=== PATIENT | female | born 1995 | race Caucasian/White ===

== ENCOUNTER 2016-08-04 07:13 | Inpatient (IN) | payer MEDICAID ==
[~2016-08-04] VITALS: Ht 167.6 cm; Wt 89.8 kg
[2016-08-04] VITALS (7 sets, daily range): BP systolic 111–124; RESP 18–20; TEMP 98.6; Ht 167.6 cm; Wt 89.8 kg
[2016-08-04] MEDS ORDERED: ACETAMINOPHEN 325 MG TAB PO PRN (07:20)
[2016-08-04] MEDS ORDERED: FAMOTIDINE 20 MG TAB PO PRN (07:20)
[2016-08-04] MEDS ORDERED: METOCLOPRAMIDE 10 MG/2 ML VIAL IV PUSH PRN (07:20)
[2016-08-04] MEDS ORDERED: MORPHINE 5 MG/1 ML VIAL IV PRN (07:20)
[2016-08-04] MEDS ORDERED: LIDOCAINE 1% BUFFERED 1 ML SYR INTRADERM PRN (07:20)
[2016-08-04] MEDS ORDERED: CEFAZOLIN (LD/OB) 100 ML IV PRN (07:20)
[2016-08-04] MEDS ORDERED: TERBUTALINE 1 MG/ML VIAL SUBQ PRN (07:20)
[2016-08-04] MEDS ORDERED: FAMOTIDINE 20 MG INJ IV PRN (07:20)
[2016-08-04] MEDS ORDERED: PROMETHAZINE 25 MG/ML VIAL IV PRN (07:20)
[2016-08-04] MEDS ORDERED: ONDANSETRON 4 MG VIAL IV PRN (07:20)
[2016-08-04] MEDS ORDERED: OXYTOCIN 15 UNITS/250 ML NS 250 ML IV SCH ×3 (07:20→20:30)
[2016-08-04] MEDS ORDERED: ALU/MAG/SIM 30 ML UDC PO PRN (07:20)
[2016-08-04] MEDS ORDERED: LIDOCAINE 1% 30 ML PF INFILTRATE ONE (07:20)
[2016-08-04] MEDS: LACT RINGERS 1,000 ML IV SCH ×2 (07:37→09:42)
[2016-08-04] MEDS ORDERED: LIDOCAINE 2% 5 ML IV ONE (07:48)
[2016-08-04] MEDS ORDERED: ROPIV/FENT 0.2%-2MCG/ML 100 ML EPIDURAL ONE (09:22)
[2016-08-04] MEDS ORDERED: FENTANYL 100 MCG/2 ML AMP ONE (09:22)
[2016-08-04] MEDS ORDERED: LACT RINGERS 500 ML IV PRN (10:00)
[2016-08-04] MEDS ORDERED: SODIUM CHLORIDE 0.9% 500 ML IV PRN (10:00)
[2016-08-04] MEDS ORDERED: FENTANYL 100 MCG/2 ML AMP EPIDURAL ONE (10:00)
[2016-08-04] MEDS ORDERED: LACT RINGERS 500 ML IV ONE (10:00)
[2016-08-04] MEDS: ROPIV/FENT 0.2%-2MCG/ML 100 ML EPIDURAL SCH ×2 (10:29→16:04)
[2016-08-04] MEDS ORDERED: **ONLY ANESTEHSIA MAY ORDER OPIATES WHILE ON EPIDURAL XX SCH (20:00)
[2016-08-04] MEDS ORDERED: MISOPROSTOL 200 MCG TAB RECTAL ONE (20:30)
[2016-08-04] MEDS ORDERED: MAG HYDROX 30 ML UDC PO PRN (20:30)
[2016-08-04] MEDS ORDERED: ZOLPIDEM 5 MG TAB PO PRN (20:30)
[2016-08-04] MEDS ORDERED: TDaP 0.5 ML VIAL IM.VACC ONE (20:30)
[2016-08-04] MEDS ORDERED: SALINE FLUSH 10 ML FLUSH PRN (20:30)
[2016-08-04] MEDS ORDERED: MISOPROSTOL 200 MCG TAB PO ONE (20:30)
[2016-08-04] MEDS ORDERED: SODIUM CHLORIDE 0.9% FLUSH BAG 500 ML IV PRN (20:30)
[2016-08-04] MEDS ORDERED: MEASLES,MUMPS,RUBELLA VAC SUBQ.VACC ONE (20:30)
[2016-08-04] MEDS ORDERED: DERMOPLAST SPRAY TOPICAL PRN (20:30)
[2016-08-04] MEDS ORDERED: MISOPROSTOL 100 MCG TAB ONE (21:24)
[2016-08-04] MEDS: Ibuprofen 800 MG TAB PO SCH (22:33)
[2016-08-04] MEDS: ASTRINGENT MED PADS 40'S TOPICAL PRN (23:50)
[2016-08-05 02:27] VITALS: BP_SYST 117; RESP 18; TEMP 98.1
[2016-08-05 05:51] VITALS: BP_SYST 122; RESP 16; TEMP 97.5
[2016-08-05] MEDS ORDERED: SALINE FLUSH 10 ML FLUSH SCH (08:00)
[2016-08-05] MEDS: Ibuprofen 800 MG TAB PO SCH ×3 (09:02→23:54)
[2016-08-05] MEDS: DOCUSATE SOD 100 MG CAP PO SCH (09:02)
[2016-08-05 09:25] VITALS: BP_SYST 109
[2016-08-05 09:28] VITALS: RESP 16; TEMP 97.3
[2016-08-05 13:36] VITALS: BP_SYST 99; RESP 16; TEMP 97.4
[2016-08-05 17:56] VITALS: BP_SYST 116; RESP 18
[2016-08-06] MEDS: ASTRINGENT MED PADS 40'S TOPICAL PRN
[2016-08-06 05:15] VITALS: BP_SYST 119; RESP 16; TEMP 97.7
[2016-08-06] MEDS: DOCUSATE SOD 100 MG CAP PO SCH (08:06)
[2016-08-06] MEDS: Ibuprofen 800 MG TAB PO SCH (08:08)
[2016-08-06 09:26] VITALS: BP_SYST 118; RESP 18; TEMP 98.2
[2016-08-06 11:04] VITALS: BP_SYST 118; RESP 18; TEMP 98.2
== END 2016-08-06 14:43 | disposition home or self-care (01) | DRG 775 ==
LOC: EEVIPCON 07:13 → LD 07:13 → OB 22:51
PROVIDERS: ADMIT Obstetrics & Gynecology; ATTEND Obstetrics & Gynecology
PROC: 10E0XZZ Delivery of Products of Conception, External Approach (ICD-10-PCS; principal; 2016-08-04)
PROC: 0KQM0ZZ Repair Perineum Muscle, Open Approach (ICD-10-PCS; 2016-08-04)
PROC: 10H07YZ Insertion of Other Device into Products of Conception, Via Natural or Artificial Opening (ICD-10-PCS; 2016-08-04)
PROC: 10907ZC Drainage of Amniotic Fluid, Therapeutic from Products of Conception, Via Natural or Artificial Opening (ICD-10-PCS; 2016-08-04)
CPT/HCPCS: 82803; 85025; 86850; 86900; 86901

== ENCOUNTER 2016-08-24 19:49 | Emergency (ER) | payer MEDICAID ==
[2016-08-24] MEDS ORDERED: OPTIRAY 350 100 ML VIAL HMH IV ONE (19:50)
[2016-08-24] MEDS ORDERED: SODIUM CHLORIDE 0.9% 1,000 ML ONE (23:02)
[2016-08-24] MEDS ORDERED: KETOROLAC 30 MG/ML VIAL ONE (23:02)
== END 2016-08-25 01:51 | disposition home or self-care (01) ==
LOC: ER 19:49
DX: K82.9 Disease of gallbladder, unspecified (principal)
CPT/HCPCS: 36415; 71020; 71260; 76705; 80053; 81001; 82553; 83690; 84484; 84703; 85025; 87088; 93005; 96361; 96374